=== PATIENT | male | born 1965 | race Two or more races ===

== ENCOUNTER 2018-09-02 10:55 | Emergency (ER) | payer OTHER ==
[~2018-09-02] VITALS: Ht 177.8 cm; Wt 94.3 kg
[~2018-09-02 10:55] MED LIST: CARVEDILOL3.125 M1 PO; CARVEDILOL6.25 M1 PO; HYDROCHLOROTH12.5 M2 PO; LISINOPRIL2.5 MG PO; LISINOPRIL20 MG PO; ULT50 PO
[2018-09-02 10:59] VITALS: Ht 177.8 cm; Wt 94.3 kg
[2018-09-02 11:29] LABS: BASOPHIL % 0.5 % (0-2); PLATELET COUNT 161 x10^3mcL (130-400)
[2018-09-02 11:30] LABS: RED CELL DISTRIBUTION WIDTH 15.3 % (11.5-14.5)
[2018-09-02 11:40] LABS: CALCIUM 8.4 mg/dL (8.5-10.1); CARBON DIOXIDE 29.4 mmol/L (21-32); CREATININE SERUM 1.8 mg/dL (0.7-1.3); POTASSIUM SERUM 3.9 mmol/L (3.5-5.1)
[2018-09-02 11:44] LABS: BILIRUBIN TOTAL 0.48 mg/dL (0.20-1.00); TOTAL PROTEIN, SERUM 7.3 g/dL (6.4-8.2)
[2018-09-02 11:48] LABS: ALBUMIN 3.3 g/dL (3.4-5.0)
[2018-09-02] MEDS ORDERED: LINZESS290 MCG PO (12:48)
[2018-09-02 13:09] VITALS: BP 120/64
== END 2018-09-02 13:09 | disposition left against medical advice (07) ==
LOC: ED 10:55 → DU 12:58 → ED 12:58
PROVIDERS: Emergency Medicine
DX: R07.89 Other chest pain (principal); I12.9 Hypertensive chronic kidney disease with stage 1 through stage 4 chronic kidney disease, or unspecified chronic kidney disease; N18.3 Chronic kidney disease, stage 3 (moderate); M17.0 Bilateral primary osteoarthritis of knee; E46 Unspecified protein-calorie malnutrition; Z88.0 Allergy status to penicillin
CPT/HCPCS: 36415; 83880

== ENCOUNTER 2018-09-15 06:09 | Inpatient (IN) | payer OTHER ==
[~2018-09-15] VITALS: Ht 177.8 cm; Wt 91.6 kg
[~2018-09-15 06:09] MED LIST changes: +LINZESS290 MCG PO
[2018-09-15 06:16] VITALS: Ht 177.8 cm; Wt 91.6 kg
[2018-09-15 07:01] LABS: BASOPHIL % 0.5 % (0-2); PLATELET COUNT 191 x10^3mcL (130-400)
[2018-09-15 07:03] LABS: CALCIUM 8.5 mg/dL (8.5-10.1); CARBON DIOXIDE 28.9 mmol/L (21-32); CREATININE SERUM 1.6 mg/dL (0.7-1.3)
[2018-09-15 07:08] LABS: ALBUMIN 3.5 g/dL (3.4-5.0); BILIRUBIN TOTAL 0.79 mg/dL (0.20-1.00); TOTAL PROTEIN, SERUM 7.5 g/dL (6.4-8.2)
[2018-09-15 07:21] LABS: RED CELL DISTRIBUTION WIDTH 14.6 % (11.5-14.5)
[2018-09-15 10:18] VITALS: BP 130/108
[2018-09-15 10:35] LABS: CHOLESTEROL/HDL RATIO 3.7; MAGNESIUM 1.5 mg/dL (1.8-2.4); PHOSPHOROUS 2.8 mg/dL (2.5-4.9); T3 TOTAL 1.36 ng/mL
[2018-09-15 10:39] LABS: FREE T4 0.95 ng/dL (0.76-1.46); FREE THYROXINE INDEX 2.1 ug/dL (1.4-4.5); T4(THYROXINE) 6.4 ug/dL (4.7-13.3)
[2018-09-15 14:57] LABS: microscopic required? NO
[2018-09-15 15:01] LABS: UA SPECIFIC GRAVITY 1.025 (1.005-1.035); urine erythrocyte NEGATIVE (NEGATIVE)
[2018-09-15 17:29] VITALS: BP 118/73
[2018-09-15 20:42] VITALS: BP 124/86
[2018-09-16 05:27] VITALS: BP 122/75
[2018-09-16 06:11] LABS: BASOPHIL % 0.7 % (0-2); PLATELET COUNT 167 x10^3mcL (130-400); RED CELL DISTRIBUTION WIDTH 14.4 % (11.5-14.5)
[2018-09-16 06:59] LABS: CALCIUM 8.2 mg/dL (8.5-10.1); CARBON DIOXIDE 24.8 mmol/L (21-32); CHLORIDE SERUM 102 mmol/L (98-107); CREATININE SERUM 1.3 mg/dL (0.7-1.3); GFR1 > 60 mL/min; GLUCOSE SERUM 84 mg/dL (74-106); POTASSIUM SERUM 3.5 mmol/L (3.5-5.1); SODIUM SERUM 134 mmol/L (136-145)
[2018-09-16 09:39] VITALS: BP 128/86
[2018-09-16] MEDS ORDERED: LEVAQUIN750 MG PO (15:24)
[2018-09-16] MEDS ORDERED: FLA500 PO (15:25)
[2018-09-16] MEDS ORDERED: TOR10 PO (15:27)
[2018-09-16 16:28] VITALS: BP 128/86
== END 2018-09-16 16:55 | disposition home or self-care (01) | DRG 244 ==
LOC: ED 06:09 → MU 08:34
PROVIDERS: Emergency Medicine; Internal Medicine
DX: K57.32 Diverticulitis of large intestine without perforation or abscess without bleeding (principal); N17.0 Acute kidney failure with tubular necrosis; I10 Essential (primary) hypertension; M17.0 Bilateral primary osteoarthritis of knee; Z79.899 Other long term (current) drug therapy; E11.65 Type 2 diabetes mellitus with hyperglycemia; Z83.3 Family history of diabetes mellitus; Z82.49 Family history of ischemic heart disease and other diseases of the circulatory system; Z88.8 Allergy status to other drugs, medicaments and biological substances; Z88.0 Allergy status to penicillin
CPT/HCPCS: 82962; 83880; 84439; J1885; J1956; J2270; J2405; J3490; J7030; Q0092

== ENCOUNTER 2018-10-05 06:58 | Inpatient (IN) | payer OTHER ==
[~2018-10-05] VITALS: Ht 177.8 cm; Wt 94.4 kg
[~2018-10-05 06:58] MED LIST changes: +FLA500 PO; +LEVAQUIN750 MG PO; +TOR10 PO
[2018-10-05 07:10] VITALS: Ht 177.8 cm; Wt 94.4 kg
[2018-10-05 07:45] LABS: BASOPHIL % 0.3 % (0-2); PLATELET COUNT 158 x10^3mcL (130-400); RED CELL DISTRIBUTION WIDTH 14.8 % (11.5-14.5)
[2018-10-05 08:04] LABS: CALCIUM 8.3 mg/dL (8.5-10.1); CARBON DIOXIDE 30.9 mmol/L (21-32); CREATININE SERUM 1.4 mg/dL (0.7-1.3)
[2018-10-05 08:15] LABS: BILIRUBIN TOTAL 0.35 mg/dL (0.20-1.00); C REACTIVE PROTEIN 2.5 mg/dL (<=0.9); TOTAL PROTEIN, SERUM 7.2 g/dL (6.4-8.2)
[2018-10-05 08:16] LABS: CK-MB 2.4 ng/mL (0-3.6); T3 TOTAL 1.39 ng/mL
[2018-10-05 08:24] LABS: ALBUMIN 3.3 g/dL (3.4-5.0); FREE T4 0.91 ng/dL (0.76-1.46); FREE THYROXINE INDEX 2.5 ug/dL (1.4-4.5); T4(THYROXINE) 7.6 ug/dL (4.7-13.3)
[2018-10-05 10:00] LABS: CHOLESTEROL/HDL RATIO 3.7; MAGNESIUM 1.7 mg/dL (1.8-2.4); PHOSPHOROUS 3.2 mg/dL (2.5-4.9)
[2018-10-05 10:03] LABS: ERYTHROCYTE SED RATE 12 mm/hr (0-20)
[2018-10-05 10:10] VITALS: BP 154/94
[2018-10-05 11:20] VITALS: BP 154/94
[2018-10-05 13:31] VITALS: BP 139/97
[2018-10-05 17:47] VITALS: BP 148/93
[2018-10-05 21:08] VITALS: BP 141/89
[2018-10-05 21:20] LABS: microscopic required? YES; urine erythrocyte NEGATIVE (NEGATIVE)
[2018-10-05 21:43] LABS: AMPHETAMINE QUAL UR NONE DETECTED (See below)
[2018-10-06 06:23] VITALS: BP 137/75
[2018-10-06 07:12] LABS: CALCIUM 7.9 mg/dL (8.5-10.1); CARBON DIOXIDE 26.2 mmol/L (21-32); CHLORIDE SERUM 104 mmol/L (98-107); CREATININE SERUM 1.3 mg/dL (0.7-1.3); GFR1 > 60 mL/min; GLUCOSE SERUM 81 mg/dL (74-106); MAGNESIUM 1.6 mg/dL (1.8-2.4); PHOSPHOROUS 3.3 mg/dL (2.5-4.9); SODIUM SERUM 135 mmol/L (136-145)
[2018-10-06 07:28] LABS: BASOPHIL % 0.5 % (0-2); PLATELET COUNT 150 x10^3mcL (130-400); RED CELL DISTRIBUTION WIDTH 15.1 % (11.5-14.5)
[2018-10-06 09:20] VITALS: BP 143/88
[2018-10-06] MEDS ORDERED: CIP500 PO (13:20)
[2018-10-06] MEDS ORDERED: ELA25 PO (13:21)
[2018-10-06] MEDS ORDERED: METP PO (13:22)
[2018-10-06] MEDS ORDERED: ZOF4 PO (13:26)
[2018-10-06 14:09] VITALS: BP 143/88
[2018-10-06] MEDS ORDERED: LINZESS290 MCG PO (14:31)
[2018-10-06] MEDS ORDERED: FLAGYL500 MG PO (14:31)
== END 2018-10-06 14:35 | disposition home or self-care (01) | DRG 244 ==
LOC: ED 06:58 → MU 09:20
PROVIDERS: Family Medicine; Specialist
DX: K57.32 Diverticulitis of large intestine without perforation or abscess without bleeding (principal); N17.0 Acute kidney failure with tubular necrosis; E44.1 Mild protein-calorie malnutrition; I10 Essential (primary) hypertension; M17.0 Bilateral primary osteoarthritis of knee; K59.00 Constipation, unspecified; Z68.29 Body mass index [BMI] 29.0-29.9, adult; Z88.0 Allergy status to penicillin; Z79.899 Other long term (current) drug therapy; Z83.3 Family history of diabetes mellitus; Z82.49 Family history of ischemic heart disease and other diseases of the circulatory system; Z56.0 Unemployment, unspecified
CPT/HCPCS: 83880; 84439; J1885; J1956; J2270; J2405; J3010; J3490; J7030; Q0092; Q9967

== ENCOUNTER 2018-11-10 03:26 | Emergency (ER) | payer OTHER ==
[~2018-11-10] VITALS: Ht 175.3 cm; Wt 88.5 kg
[~2018-11-10 03:26] MED LIST changes: +CIP500 PO; +ELA25 PO; +FLAGYL500 MG PO; +METP PO; +ZOF4 PO
[2018-11-10 03:28] VITALS: Ht 175.3 cm; Wt 88.5 kg
[2018-11-10 06:18] VITALS: BP 164/98
== END 2018-11-10 06:18 | disposition home or self-care (01) ==
LOC: ED 03:26
DX: B37.0 Candidal stomatitis (principal); I10 Essential (primary) hypertension; Z88.0 Allergy status to penicillin; Z88.1 Allergy status to other antibiotic agents; Z98.890 Other specified postprocedural states
CPT/HCPCS: Q0092

== ENCOUNTER 2018-11-21 08:31 | Emergency (ER) | payer OTHER ==
[~2018-11-21] VITALS: Ht 170.2 cm; Wt 83.0 kg
[2018-11-21 08:37] VITALS: Ht 170.2 cm; Wt 83.0 kg
[2018-11-21 13:25] VITALS: BP 155/66
== END 2018-11-21 13:25 | disposition home or self-care (01) ==
LOC: ED 08:31
DX: J02.9 Acute pharyngitis, unspecified (principal); I10 Essential (primary) hypertension; M17.0 Bilateral primary osteoarthritis of knee; Z88.0 Allergy status to penicillin; Z98.890 Other specified postprocedural states; Z88.1 Allergy status to other antibiotic agents
CPT/HCPCS: 87804; J1100; J2270; Q0162

== ENCOUNTER 2019-07-01 20:36 | Emergency (ER) | payer OTHER ==
[~2019-07-01] VITALS: Ht 177.8 cm; Wt 90.3 kg
[2019-07-01 20:39] VITALS: Ht 177.8 cm; Wt 90.3 kg
[2019-07-02 00:17] LABS: BASOPHIL % 0.7 % (0-2); PLATELET COUNT 182 x10^3mcL (130-400)
[2019-07-02 00:18] LABS: RED CELL DISTRIBUTION WIDTH 16.3 % (11.5-14.5)
[2019-07-02 00:32] LABS: CALCIUM 8.1 mg/dL (8.5-10.1); CARBON DIOXIDE 28.2 mmol/L (21-32); CHLORIDE SERUM 102 mmol/L (98-107); CREATININE SERUM 1.3 mg/dL (0.7-1.3); GFR1 > 60 mL/min; GLUCOSE SERUM 95 mg/dL (74-106); POTASSIUM SERUM 4.1 mmol/L (3.5-5.1); SODIUM SERUM 138 mmol/L (136-145)
[2019-07-02 00:37] LABS: ALKALINE PHOSPHATASE 52 U/L (46-116); ALT/SGPT 23 U/L (16-63); AST/SGOT 14 U/L (15-37); BILIRUBIN TOTAL 0.3 mg/dL (0.20-1.00); TOTAL PROTEIN, SERUM 6.6 g/dL (6.4-8.2)
[2019-07-02 00:39] LABS: ALBUMIN 3.3 g/dL (3.4-5.0)
[2019-07-02 04:11] VITALS: BP 125/75
== END 2019-07-02 04:11 | disposition home or self-care (01) ==
LOC: ED 20:36
PROVIDERS: Emergency Medicine
DX: G44.209 Tension-type headache, unspecified, not intractable (principal); I10 Essential (primary) hypertension; Z88.0 Allergy status to penicillin; Z88.1 Allergy status to other antibiotic agents
CPT/HCPCS: J0360; J3490

== ENCOUNTER 2019-09-07 04:50 | Emergency (ER) | payer OTHER ==
[~2019-09-07] VITALS: Ht 177.8 cm; Wt 91.2 kg
[2019-09-07 05:01] VITALS: BP 137/103; Ht 177.8 cm; Wt 91.2 kg
== END 2019-09-07 08:15 | disposition home or self-care (01) ==
LOC: ED 04:50
DX: R05 Cough (principal); I10 Essential (primary) hypertension; Z88.0 Allergy status to penicillin; Z88.1 Allergy status to other antibiotic agents; Z98.890 Other specified postprocedural states
CPT/HCPCS: Q0092

== ENCOUNTER 2020-01-08 21:39 | Emergency (ER) | payer OTHER ==
[~2020-01-08] VITALS: Ht 175.3 cm; Wt 87.1 kg
[2020-01-08 21:44] VITALS: BP 124/82; Ht 175.3 cm; Wt 87.1 kg
== END 2020-01-08 22:55 | disposition home or self-care (01) ==
LOC: ED 21:39
DX: H66.92 Otitis media, unspecified, left ear (principal); J03.90 Acute tonsillitis, unspecified; I10 Essential (primary) hypertension; Z98.890 Other specified postprocedural states; Z88.0 Allergy status to penicillin; Z88.1 Allergy status to other antibiotic agents

== ENCOUNTER 2020-01-16 10:53 | Emergency (ER) | payer OTHER ==
[~2020-01-16] VITALS: Ht 175.3 cm; Wt 53.1 kg
[2020-01-16 12:16] LABS: CALCIUM 9.4 mg/dL (8.5-10.1); CHLORIDE SERUM 101 mmol/L (98-107); CREATININE SERUM 1.3 mg/dL (0.7-1.3); GFR1 > 60 mL/min; GLUCOSE SERUM 94 mg/dL (74-106); POTASSIUM SERUM 4.1 mmol/L (3.5-5.1); SODIUM SERUM 135 mmol/L (136-145)
[2020-01-16 12:21] LABS: ALBUMIN 3.6 g/dL (3.4-5.0); ALKALINE PHOSPHATASE 54 U/L (46-116); ALT/SGPT 30 U/L (16-63); AST/SGOT 21 U/L (15-37); BILIRUBIN TOTAL 0.49 mg/dL (0.20-1.00); TOTAL PROTEIN, SERUM 7.6 g/dL (6.4-8.2)
[2020-01-16 12:30] LABS: BASOPHIL % 0.7 % (0-2); PLATELET COUNT 208 x10^3mcL (130-400); RED CELL DISTRIBUTION WIDTH 13.7 % (11.5-14.5)
[2020-01-16 13:24] VITALS: BP 133/90
== END 2020-01-16 13:24 | disposition home or self-care (01) ==
LOC: ED 10:53
PROVIDERS: Emergency Medicine
DX: R07.89 Other chest pain (principal); R06.02 Shortness of breath; R51 Headache
CPT/HCPCS: 36415; 83880; Q0092

== ENCOUNTER 2020-11-06 06:06 | Emergency (ER) | payer OTHER ==
[~2020-11-06] VITALS: Ht 177.8 cm; Wt 88.2 kg
[2020-11-06 07:04] LABS: BASOPHIL % 0.6 % (0.2-1.5); PLATELET COUNT 209 x10^3mcL (152-348)
[2020-11-06 07:27] LABS: RED CELL DISTRIBUTION WIDTH 14.8 % (12.1-16.2)
[2020-11-06 07:34] LABS: ALBUMIN 3.8 g/dL (3.4-5.0); BILIRUBIN TOTAL 0.53 mg/dL (0.20-1.00); CALCIUM 9.6 mg/dL (8.5-10.1); CARBON DIOXIDE 29.3 mmol/L (21-32); CREATININE SERUM 1.6 mg/dL (0.7-1.3); POTASSIUM SERUM 3.9 mmol/L (3.5-5.1); TOTAL PROTEIN, SERUM 7.7 g/dL (6.4-8.2)
[2020-11-06 09:33] VITALS: BP 133/95
[2020-11-06 13:25] LABS: rbc morphology (normal/abnorm) NORMAL (NORMAL)
== END 2020-11-06 11:04 | disposition home or self-care (01) ==
LOC: ED 06:06
PROVIDERS: Student in an Organized Health Care Education/Training Program
DX: K52.9 Noninfective gastroenteritis and colitis, unspecified (principal); I10 Essential (primary) hypertension; Z98.890 Other specified postprocedural states; Z88.0 Allergy status to penicillin; Z88.1 Allergy status to other antibiotic agents
CPT/HCPCS: J0500; J1885